=== PATIENT | male | born 1965 | race Caucasian/White ===

== ENCOUNTER 2020-04-03 20:53 | Inpatient (IN) | payer BC ==
[~2020-04-03] VITALS: Ht 180.3 cm; Wt 95.0 kg
[2020-04-03] MEDS ORDERED: normal saline 1000ML IV soln IVB ONE (21:45)
[2020-04-03] MEDS ORDERED: LOSA50TA64 PO (22:11)
[2020-04-03 22:17] LABS: BASOPHILS % (AUTO) 0.3 % (0-1); EOSINOPHILS # (AUTO) 0.2 X10'3 (0-0.9); EOSINOPHILS % (AUTO) 2.9 % (0-6); HEMATOCRIT 39.1 % (42.0-52.0); HEMOGLOBIN 13.4 g/dl (14.0-17.9); LYMPHOCYTES # (AUTO) 1.1 X10'3 (1.1-4.8); LYMPHOCYTES % (AUTO) 13.5 % (21-51); MEAN CORPUSCULAR HEMOGLOBIN 30.8 PG (27.0-31.0); MEAN CORPUSCULAR HGB CONC 34.3 g/dL (33.0-36.5); MEAN CORPUSCULAR VOLUME 89.7 FL (78-98); MEAN PLATELET VOLUME 7.1 FL (7.4-10.4); MONOCYTES # (AUTO) 0.7 X10'3 (0-0.9); NEUTROPHILS % (AUTO) 74.3 % (42-75); PLATELET COUNT 265 X10'3 (140-440); RED BLOOD COUNT 4.36 X10'6 (4.70-6.10); RED CELL DISTRIBUTION WIDTH 13.2 % (11.5-14.5)
[2020-04-03 22:28] LABS: ALANINE AMINOTRANSFERASE 49 U/L (12-78); ALBUMIN/GLOBULIN RATIO 0.9 (1.1-1.5); ALKALINE PHOSPHATASE 161 IU/L (46-116); ANION GAP 12 (8-16); ASPARTATE AMINO TRANSFERASE 31 U/L (10-37); BILIRUBIN,TOTAL 0.5 MG/DL (0.1-1.0); BLOOD UREA NITROGEN 19 MG/DL (7-18); BUN/CREATININE RATIO 20.4 (5.4-32.0); CALCIUM 8.8 MG/DL (8.5-10.1); CHLORIDE 104 MMOL/L (99-107); CREATININE 0.93 MG/DL (0.60-1.10); GLUCOSE 109 MG/DL (70-104); POTASSIUM 3.3 MMOL/L (3.5-5.1); SODIUM 141 MMOL/L (135-145); TOTAL CARBON DIOXIDE 24.6 MMOL/L (24-32); TOTAL PROTEIN 8.3 G/DL (6.4-8.2); eGFR 85 ML/MIN
[2020-04-03 22:38] LABS: D-DIMER > 35.20 MG/L FEU (0-0.50)
[2020-04-03] MEDS ORDERED: iohexol 350MG/ML 100ml bottle IV ONE (23:25)
[2020-04-04] MEDS ORDERED: ondansetron/PF 4mg/2ml inj IV PRN (00:10)
[2020-04-04] MEDS ORDERED: heparin 10,000 units/1 ML INJ IV ONE (00:10)
[2020-04-04] MEDS ORDERED: LORazepam 0.5 MG tablet PO PRN (00:10)
[2020-04-04] MEDS ORDERED: magnesium hydroxide 30ml (MOM) UD suspension PO PRN (00:10)
[2020-04-04] MEDS ORDERED: acetaminophen 325mg tablet PO PRN ×2 (00:10)
[2020-04-04] MEDS ORDERED: metoclopramide 5 mg/ml inj IV PRN (00:10)
[2020-04-04] MEDS ORDERED: heparin 10,000 units/1 ML INJ IV PRN (00:10)
[2020-04-04] MEDS ORDERED: magnesium 2GM in 50ml NS 50 ML IV PRN (00:10)
[2020-04-04] MEDS ORDERED: potassium Cl 40MEQ/1/2NS 520ml 520 ML IV PRN ×2 (00:10)
[2020-04-04] MEDS ORDERED: HYDROcodone/acetaminophen 5mg/325mg tablet PO PRN (00:10)
[2020-04-04] MEDS ORDERED: potassium Cl 20 mEq SR tablet PO PRN (00:10)
[2020-04-04] MEDS ORDERED: magnesium 4gm in 100ml NS 100 ML IV PRN (00:10)
[2020-04-04] MEDS ORDERED: morphine 2 MG/ML inj. syringe IV PRN ×2 (00:10)
[2020-04-04] MEDS ORDERED: mag hydrox/Alum hydrox/simeth 30ml oral suspension PO PRN (00:10)
[2020-04-04] MEDS ORDERED: magnesium Cl slow-release 64mg tablet PO PRN (00:10)
[2020-04-04] MEDS: heparin 25,000 UNIT/250ml bag 250 ML IV SCH ×3 (01:00→22:40)
[2020-04-04] MEDS: normal saline 1000ml 1,000 ML IV SCH ×3 (01:00→20:15)
--- NOTE | 2020-04-04 01:45 | NUR ---
Patient arrived on the floor. Alert, oriented x4. Resting comfortably. No SOB, NO chest pain.
[2020-04-04 02:00] VITALS: BP 143/92
--- NOTE | 2020-04-04 05:51 | NUR ---
patient is resting well. No SOB, no chest pain. All needs are met.
--- NOTE | 2020-04-04 06:17 | NUR ---
Problems reprioritized. Patient report given, questions answered & plan of care reviewed with Shoshana-JESSIE .
--- NOTE | 2020-04-04 06:37 | NUR ---
Patient in room PCU 3012. I have received report from JESSIE Wood and had the opportunity to ask questions and assume patient care.
[2020-04-04 06:51] VITALS: BP 148/55
[2020-04-04] MEDS ORDERED: losartan 50mg tablet PO SCH (08:00)
[2020-04-04] MEDS: K and/or MAG REPLACEMENT MC SCH ×2 (08:31→20:00)
[2020-04-04] MEDS: famotidine 20mg tablet PO SCH ×2 (08:39→20:15)
[2020-04-04] MEDS: potassium Cl 20 mEq SR tablet PO PRN ×3 (08:39→20:15)
[2020-04-04 11:00] VITALS: BP 165/101
[2020-04-04 15:00] VITALS: BP 168/104
[2020-04-04] MEDS ORDERED: hydrALAZINE 20mg/ml inj. IV PRN (16:00)
[2020-04-04 18:00] VITALS: BP 172/97
--- NOTE | 2020-04-04 18:27 | NUR ---
Problems reprioritized. Patient report given, questions answered & plan of care reviewed with JESSIE Dee.
--- NOTE | 2020-04-04 18:30 | NUR ---
Patient in room PCU 3012. I have received report from Farideh, and had the opportunity to ask questions and assume patient care.
[2020-04-04] MEDS ORDERED: temazepam 15mg capsule PO PRN (21:00)
[2020-04-04 22:00] VITALS: BP 164/95
[2020-04-05 01:52] VITALS: BP 158/90
--- NOTE | 2020-04-05 06:00 | NUR ---
REPORT RECEIVED BY MELO ALL QUESTIONS ASKED AND ANSWEREDD WILL ASSUME CARE
--- NOTE | 2020-04-05 06:34 | NUR ---
Problems reprioritized. Patient report given, questions answered & plan of care reviewed with Brittny.
[2020-04-05 07:00] VITALS: BP 127/80
[2020-04-05 07:27] LABS: BASOPHILS % (AUTO) 0.4 % (0-1); EOSINOPHILS # (AUTO) 0.3 X10'3 (0-0.9); EOSINOPHILS % (AUTO) 2.8 % (0-6); HEMATOCRIT 36.6 % (42.0-52.0); HEMOGLOBIN 12.8 g/dl (14.0-17.9); LYMPHOCYTES # (AUTO) 1.3 X10'3 (1.1-4.8); LYMPHOCYTES % (AUTO) 13.9 % (21-51); MEAN CORPUSCULAR HEMOGLOBIN 31.5 PG (27.0-31.0); MEAN CORPUSCULAR VOLUME 90.2 FL (78-98); MEAN PLATELET VOLUME 7.2 FL (7.4-10.4); MONOCYTES # (AUTO) 0.9 X10'3 (0-0.9); MONOCYTES % (AUTO) 9.5 % (2-12); NEUTROPHILS # (AUTO) 6.7 X10'3 (1.8-7.7); NEUTROPHILS % (AUTO) 73.4 % (42-75); PLATELET COUNT 258 X10'3 (140-440); RED BLOOD COUNT 4.06 X10'6 (4.70-6.10); RED CELL DISTRIBUTION WIDTH 13.2 % (11.5-14.5); WHITE BLOOD COUNT 9.1 X10'3 (4.5-11.0)
[2020-04-05 07:38] LABS: ALBUMIN 3.6 G/DL (3.4-5.0); ANION GAP 10 (8-16); BLOOD UREA NITROGEN 14 MG/DL (7-18); BUN/CREATININE RATIO 15.9 (5.4-32.0); CALCIUM 8.7 MG/DL (8.5-10.1); CHLORIDE 105 MMOL/L (99-107); CHOLESTEROL 169 MG/DL (0-200); CREATININE 0.88 MG/DL (0.60-1.10); GLUCOSE 89 MG/DL (70-104); HDL CHOLESTEROL 28 MG/DL (35-60); LDL CHOLESTEROL 131 MG/DL (50-100); MAGNESIUM 2.2 MG/DL (1.5-2.4); POTASSIUM 3.9 MMOL/L (3.5-5.1); SODIUM 139 MMOL/L (135-145); TOTAL CARBON DIOXIDE 23.9 MMOL/L (24-32); TRIGLYCERIDES 115 MG/DL (20-135); eGFR 90 ML/MIN
[2020-04-05] MEDS: K and/or MAG REPLACEMENT MC SCH ×2 (08:00→20:00)
[2020-04-05] MEDS: normal saline 1000ml 1,000 ML IV SCH ×2 (09:01→15:36)
[2020-04-05] MEDS: famotidine 20mg tablet PO SCH ×2 (09:01→19:28)
[2020-04-05] MEDS: losartan 50mg tablet PO SCH (09:03)
[2020-04-05] MEDS: heparin 25,000 UNIT/250ml bag 250 ML IV SCH ×2 (09:07→14:37)
[2020-04-05] MEDS: atorvastatin 20mg tablet PO SCH (14:30)
[2020-04-05 18:00] VITALS: BP 158/96
--- NOTE | 2020-04-05 18:45 | NUR ---
Patient in room PCU 3012. I have received report from Jared ROMAN and had the opportunity to ask questions and assume patient care.
--- NOTE | 2020-04-05 19:06 | NUR ---
REPORT GIVEN TO DAMIAN ROMAN . ALL QUESTIONS ANSWERED. NO DISTRESS. NOTED AT THIS TIME W PATIENT.
[2020-04-05] MEDS: HYDROcodone/acetaminophen 10/325mg tab PO PRN (19:30)
[2020-04-05 22:00] VITALS: BP 145/89
[2020-04-06 02:00] VITALS: BP 138/98
[2020-04-06] MEDS: normal saline 1000ml 1,000 ML IV SCH ×3 (02:10→15:53)
[2020-04-06] MEDS: HYDROcodone/acetaminophen 10/325mg tab PO PRN ×2 (02:27→19:43)
[2020-04-06 02:44] LABS: ALBUMIN 3.7 G/DL (3.4-5.0); ANION GAP 15 (8-16); BLOOD UREA NITROGEN 15 MG/DL (7-18); BUN/CREATININE RATIO 17.9 (5.4-32.0); CALCIUM 8.9 MG/DL (8.5-10.1); CHLORIDE 102 MMOL/L (99-107); CREATININE 0.84 MG/DL (0.60-1.10); GLUCOSE 91 MG/DL (70-104); MAGNESIUM 2.2 MG/DL (1.5-2.4); POTASSIUM 3.6 MMOL/L (3.5-5.1); SODIUM 139 MMOL/L (135-145); TOTAL CARBON DIOXIDE 21.9 MMOL/L (24-32); eGFR > 90 ML/MIN
[2020-04-06 02:50] LABS: BASOPHILS % (AUTO) 0.3 % (0-1); EOSINOPHILS # (AUTO) 0.3 X10'3 (0-0.9); EOSINOPHILS % (AUTO) 2.8 % (0-6); HEMATOCRIT 37.2 % (42.0-52.0); LYMPHOCYTES # (AUTO) 1.4 X10'3 (1.1-4.8); LYMPHOCYTES % (AUTO) 15.3 % (21-51); MEAN CORPUSCULAR HEMOGLOBIN 31.2 PG (27.0-31.0); MEAN CORPUSCULAR HGB CONC 34.9 g/dL (33.0-36.5); MEAN CORPUSCULAR VOLUME 89.4 FL (78-98); MEAN PLATELET VOLUME 7.3 FL (7.4-10.4); MONOCYTES # (AUTO) 0.9 X10'3 (0-0.9); MONOCYTES % (AUTO) 10.1 % (2-12); NEUTROPHILS # (AUTO) 6.6 X10'3 (1.8-7.7); NEUTROPHILS % (AUTO) 71.5 % (42-75); PLATELET COUNT 269 X10'3 (140-440); RED BLOOD COUNT 4.16 X10'6 (4.70-6.10); WHITE BLOOD COUNT 9.2 X10'3 (4.5-11.0)
[2020-04-06 02:51] LABS: CLARITY,URINE CLEAR (Clear); COLOR,URINE YELLOW (Yellow); GLUCOSE, URINE NEGATIVE (Neg); KETONES,URINE NEGATIVE (Neg); LEUKOCYTE ESTERASE ,URINE NEGATIVE (Neg); NITRITES, URINE NEGATIVE (Neg); OCCULT BLOOD,URINE TRACE-INTACT (Neg); PH,URINE 5.5 (4.8-8.0); PROTEIN,URINE NEGATIVE (Neg); UROBILINOGEN,URINE 0.2 E.U/dL (0.2-1.0)
[2020-04-06 03:00] LABS: UA COLLECTION TYPE VOIDED
[2020-04-06 03:06] LABS: BACTERIA,URINE NONE SEEN /HPF (Neg); MUCUS STRANDS MODERATE /LPF (Neg); RBC,URINE 0-2 /HPF (0-2); SQUAMOUS EPITHELIAL CELL,UR FEW /LPF (FEW); WBC,URINE 0-4 /HPF (0-4)
--- NOTE | 2020-04-06 06:44 | NUR ---
Problems reprioritized. Patient report given, questions answered & plan of care reviewed with Jared ROMAN.
--- NOTE | 2020-04-06 06:49 | NUR ---
REPORT RECEIVED BY DAMIAN ROMAN. PATIENT DENIES ANY ACUTE DISTRESS. PT LAYING OB BED. ALL QUESTIONS ANSWERED.
[2020-04-06 07:00] VITALS: BP 151/97
[2020-04-06] MEDS: losartan 50mg tablet PO SCH (07:40)
[2020-04-06] MEDS: famotidine 20mg tablet PO SCH ×2 (07:40→19:42)
[2020-04-06] MEDS: heparin 25,000 UNIT/250ml bag 250 ML IV SCH ×2 (07:44→22:11)
[2020-04-06] MEDS: atorvastatin 20mg tablet PO SCH (07:48)
[2020-04-06] MEDS: K and/or MAG REPLACEMENT MC SCH ×2 (07:52→20:00)
[2020-04-06 11:00] VITALS: BP 141/89
[2020-04-06] MEDS ORDERED: albuterol 2.5 MG/3 ML nebule NEB PRN (11:40)
--- NOTE | 2020-04-06 13:00 | NUR ---
PATIENT WAS TAGHT HOW TO USE IS. ALL QUESTIONS ANSWERED
--- NOTE | 2020-04-06 16:25 | NUR ---
PT DENIES ANY ACUTE DISTRESS. PT SLEEPING AT THIS TIME. NO DISTRESS NOTED. WILL CONTINU TO MONITOR
[2020-04-06 18:00] VITALS: BP 149/88
--- NOTE | 2020-04-06 18:34 | NUR ---
report given to jenna worthington. all questions answered. pt denies acute distress.
--- NOTE | 2020-04-06 18:58 | NUR ---
Patient in room PCU 3012. I have received report from Jared ROMAN and had the opportunity to ask questions and assume patient care.
[2020-04-06] MEDS: budesonide 0.5mg/2ml UD nebule IH SCH (21:49)
[2020-04-06] MEDS: ipratropium/albuterol 3ml nebule NEB SCH (21:49)
[2020-04-06 22:00] VITALS: BP 126/74
[2020-04-07 01:35] LABS: BASOPHILS % (AUTO) 0.5 % (0-1); EOSINOPHILS # (AUTO) 0.2 X10'3 (0-0.9); EOSINOPHILS % (AUTO) 2.4 % (0-6); HEMATOCRIT 37.1 % (42.0-52.0); HEMOGLOBIN 13.1 g/dl (14.0-17.9); LYMPHOCYTES # (AUTO) 1.5 X10'3 (1.1-4.8); LYMPHOCYTES % (AUTO) 18.3 % (21-51); MEAN CORPUSCULAR HEMOGLOBIN 31.6 PG (27.0-31.0); MEAN CORPUSCULAR HGB CONC 35.3 g/dL (33.0-36.5); MEAN CORPUSCULAR VOLUME 89.3 FL (78-98); MEAN PLATELET VOLUME 7.1 FL (7.4-10.4); MONOCYTES # (AUTO) 0.7 X10'3 (0-0.9); MONOCYTES % (AUTO) 9.2 % (2-12); NEUTROPHILS # (AUTO) 5.6 X10'3 (1.8-7.7); NEUTROPHILS % (AUTO) 69.6 % (42-75); PLATELET COUNT 261 X10'3 (140-440); RED BLOOD COUNT 4.15 X10'6 (4.70-6.10); RED CELL DISTRIBUTION WIDTH 13.5 % (11.5-14.5)
[2020-04-07 01:52] LABS: ALBUMIN 3.7 G/DL (3.4-5.0); ANION GAP 9 (8-16); BLOOD UREA NITROGEN 18 MG/DL (7-18); BUN/CREATININE RATIO 19.8 (5.4-32.0); CHLORIDE 104 MMOL/L (99-107); CREATININE 0.91 MG/DL (0.60-1.10); GLUCOSE 98 MG/DL (70-104); MAGNESIUM 2.3 MG/DL (1.5-2.4); POTASSIUM 3.5 MMOL/L (3.5-5.1); SODIUM 138 MMOL/L (135-145); TOTAL CARBON DIOXIDE 25.5 MMOL/L (24-32); eGFR 87 ML/MIN
[2020-04-07 02:00] VITALS: BP 145/83
[2020-04-07] MEDS: normal saline 1000ml 1,000 ML IV SCH (03:00)
[2020-04-07 06:00] VITALS: BP 140/81
--- NOTE | 2020-04-07 06:32 | NUR ---
Problems reprioritized. Patient report given, questions answered & plan of care reviewed with Jared ROMAN.
--- NOTE | 2020-04-07 06:46 | NUR ---
report received by jenna worthington. pt laying on bed with bed at lowest postion. pt denies acute distress. will assume care
[2020-04-07] MEDS: ipratropium/albuterol 3ml nebule NEB SCH ×3 (06:59→20:41)
[2020-04-07] MEDS: budesonide 0.5mg/2ml UD nebule IH SCH ×2 (06:59→20:41)
[2020-04-07] MEDS: K and/or MAG REPLACEMENT MC SCH ×2 (07:06→20:00)
[2020-04-07] MEDS: atorvastatin 20mg tablet PO SCH (08:33)
[2020-04-07] MEDS: losartan 50mg tablet PO SCH (08:33)
[2020-04-07] MEDS: famotidine 20mg tablet PO SCH ×2 (08:34→21:30)
--- NOTE | 2020-04-07 10:45 | NUR ---
PER MD ORDERS STOP HEPARIN ONCE LOVENOX IS GIVEN . DC NS AT 100. WILL CONTINUE TO MONITOR PATIENT. NO DISTRESS NOTED AT THIS TIME.
[2020-04-07] MEDS: enoxaparin 100mg/ml syringe SUBCUT SCH ×2 (11:33→21:30)
[2020-04-07 12:00] VITALS: BP 136/87
--- NOTE | 2020-04-07 13:16 | NUR ---
walked patient around the unit 3 times. pt tolerated well. no signs of distress. pt able to move all extremties. pt on 3 liters of oxygen
[2020-04-07 15:00] VITALS: BP 127/90
--- NOTE | 2020-04-07 16:00 | NUR ---
pt walked around the unit x4 times. pt on o2 2 liters tolerated well. pt denies any acute distress.will continue to monitor
[2020-04-07 18:00] VITALS: BP 142/85
--- NOTE | 2020-04-07 18:30 | NUR ---
Patient in room PCU 3012B. I have received report from Jem ROMAN and had the opportunity to ask questions and assume patient care.
--- NOTE | 2020-04-07 18:32 | NUR ---
report given to brenda worthington. all questions answered. pt denies any acute distress.
[2020-04-07 22:00] VITALS: BP 117/69
[2020-04-08 02:00] VITALS: BP 124/77
[2020-04-08 06:22] LABS: BASOPHILS % (AUTO) 0.6 % (0-1); EOSINOPHILS # (AUTO) 0.2 X10'3 (0-0.9); EOSINOPHILS % (AUTO) 2.6 % (0-6); HEMATOCRIT 36.4 % (42.0-52.0); HEMOGLOBIN 12.7 g/dl (14.0-17.9); LYMPHOCYTES # (AUTO) 1.2 X10'3 (1.1-4.8); LYMPHOCYTES % (AUTO) 15.1 % (21-51); MEAN CORPUSCULAR HEMOGLOBIN 31.2 PG (27.0-31.0); MEAN CORPUSCULAR HGB CONC 34.9 g/dL (33.0-36.5); MEAN CORPUSCULAR VOLUME 89.5 FL (78-98); MEAN PLATELET VOLUME 7.6 FL (7.4-10.4); MONOCYTES # (AUTO) 0.8 X10'3 (0-0.9); MONOCYTES % (AUTO) 9.7 % (2-12); NEUTROPHILS # (AUTO) 5.7 X10'3 (1.8-7.7); PLATELET COUNT 278 X10'3 (140-440); RED BLOOD COUNT 4.07 X10'6 (4.70-6.10); RED CELL DISTRIBUTION WIDTH 13.4 % (11.5-14.5); WHITE BLOOD COUNT 7.9 X10'3 (4.5-11.0)
[2020-04-08 06:27] LABS: ALBUMIN 3.8 G/DL (3.4-5.0); ANION GAP 11 (8-16); BLOOD UREA NITROGEN 20 MG/DL (7-18); CALCIUM 9.2 MG/DL (8.5-10.1); CHLORIDE 104 MMOL/L (99-107); CREATININE 0.87 MG/DL (0.60-1.10); GLUCOSE 89 MG/DL (70-104); MAGNESIUM 2.3 MG/DL (1.5-2.4); POTASSIUM 3.9 MMOL/L (3.5-5.1); SODIUM 140 MMOL/L (135-145); TOTAL CARBON DIOXIDE 25.4 MMOL/L (24-32); eGFR > 90 ML/MIN
--- NOTE | 2020-04-08 06:33 | NUR ---
Patient in room PCU 3012. I have received report from Shabana ROMAN and had the opportunity to ask questions and assume patient care.
[2020-04-08 07:00] VITALS: BP 124/89
[2020-04-08] MEDS: K and/or MAG REPLACEMENT MC SCH (08:00)
[2020-04-08] MEDS: losartan 50mg tablet PO SCH (08:18)
[2020-04-08] MEDS: atorvastatin 20mg tablet PO SCH (08:18)
[2020-04-08] MEDS: famotidine 20mg tablet PO SCH (08:19)
[2020-04-08] MEDS: enoxaparin 100mg/ml syringe SUBCUT SCH (08:19)
[2020-04-08] MEDS: ipratropium/albuterol 3ml nebule NEB SCH (08:28)
[2020-04-08] MEDS: budesonide 0.5mg/2ml UD nebule IH SCH (08:28)
[2020-04-08] MEDS ORDERED: ENOX100S3 SUBCUT (09:59)
--- NOTE | 2020-04-08 10:34 | NUR ---
Page sent to Dr. Schuler: PAGER ID: [phone] MESSAGE: [phone] Keith Hopkins: I have a question about his discharge, please call me when you can. Shonda [phone]
[2020-04-08 11:00] VITALS: BP 126/87
--- NOTE | 2020-04-08 12:54 | NUR ---
Patient is stable for discharge per MD order. All necessary discharge education and information reviewed with patient before signing necessary paperwork, IV discontinued with catheter in tact, night monitor removed and returned, patient belongings packed up and sent with patient, new Rx sent to [facility] on [address]. Patient's picked him up in private vehicle.
== END 2020-04-08 12:28 | disposition home or self-care (01) | DRG 175 ==
LOC: ER 20:53 → ED HOLD 04-04 00:08 → PCU 3S 04-04 01:38
PROVIDERS: ADMIT Family Medicine; ATTEND Family Medicine
PROC: B32T1ZZ Computerized Tomography (CT Scan) of Left Pulmonary Artery using Low Osmolar Contrast (ICD-10-PCS; principal; 2020-04-04)
PROC: B3201ZZ Computerized Tomography (CT Scan) of Thoracic Aorta using Low Osmolar Contrast (ICD-10-PCS; 2020-04-04)
PROC: B32S1ZZ Computerized Tomography (CT Scan) of Right Pulmonary Artery using Low Osmolar Contrast (ICD-10-PCS; 2020-04-04)
DX: I26.99 Other pulmonary embolism without acute cor pulmonale (principal); J96.01 Acute respiratory failure with hypoxia; J90 Pleural effusion, not elsewhere classified; I82.452 Acute embolism and thrombosis of left peroneal vein; E78.5 Hyperlipidemia, unspecified; I82.461 Acute embolism and thrombosis of right calf muscular vein; E87.6 Hypokalemia; I10 Essential (primary) hypertension; Z20.828 Contact with and (suspected) exposure to other viral communicable diseases; Z79.899 Other long term (current) drug therapy; Z87.19 Personal history of other diseases of the digestive system; Z87.442 Personal history of urinary calculi
CPT/HCPCS: 36415; 71045; 71275; 76536; 80048; 80053; 80061; 81001; 83605; 83735; 83880; 85025; 85379; 85610; 85730; 87040; 87081; 87635; 93306; 93970; 94640; 94760; 96365; 99285; C9803; G0378; J1644; J1650; J7030; J7626; Q9967